=== PATIENT | male | born 2005 | race Hispanic/Latino ===

== ENCOUNTER 2024-09-04 22:00 | Emergency (ER) | payer BC ==
[~2024-09-04] VITALS: Ht 167.6 cm; Wt 72.6 kg
[2024-09-04] MEDS ORDERED: CIPOTIC OTIC (23:10)
--- NOTE | 2024-09-04 23:12 | ERN ---
General Chief Complaint: Foreignbody Ear Stated Complaint: C/O "SOMETHING" IN LEFT EAR Time Seen by MD: 22:05 Time Seen by Midlevel: 22:05 Source: patient History of Present Illness Initial Comments Patient is a 18-year-old male presenting to the ER with a foreign body sensation to his left ear that he 1st noticed1 hour ago. Patient believes there may be an insect in his ear. Denies any other concerns at this time Allergies: Coded Allergies: No Known Allergies (Unverified Allergy, Unknown, 09/04/24) Home Meds Active Scripts Ciprofloxacin HCl/Hc (Cipro Hc Otic Susp) 0.2 %-1 % Otsus, 3 DROP OTIC BID for 7 Days, #10 ML 0 Refills Prov:SUZY ALFONSO 09/04/24 Past Medical History Past Medical History: No Pertinent History Past Surgical History: None ROS Dictation CONSTITUTIONAL: Negative except for HPI HEAD/FACE: Negative except for HPI EENT: Negative except for HPI RESPIRATORY: Negative except for HPI GASTROINTESTINAL/ABDOMINAL: Negative except for HPI GENITOURINARY: Negative except for HPI MUSCULOSKELETAL: Negative except for HPI INTEGUMENTARY: Negative except for HPI NEUROLOGICAL/PSYCH: Negative except for HPI HEMATOLOGIC/LYMPHATIC: Negative except for HPI All Systems Negative, Except as noted above. 13 point review of systems assessed and all negative except for above. Physical Exam Physical Exam Dictation PHYSICAL EXAM: GENERAL: alert,, awake oriented x 3 HEENT: EOMI, Sclera non icteric, moist mucosa. insect to left ear NECK: Supple, no JVD, trachea midline LUNGS: Clear breath sounds bilaterally. No wheezes HEART: Regular rate and rhythm. Normal S1 and S2, without murmurs ABD: Abdomen soft, nontender. Bowel sounds present EXT: No clubbing or cyanosis, NEURO: Alert and oriented to person, follows commands MDM MDM: Patient is a 18-year-old male presenting to the ER with a foreign body sensation to his left ear that he 1st noticed1 hour ago. Patient believes there may be an insect in his ear. Denies any other concerns at this time on physical examination there is an live insect to the left external canal that was success fully removed with alligator forceps. Patient was given Cipro eardrops in the emergency department and will be discharged home with a prescription for Cipro otic suspension for outpatient management. Return precautions discussed Differential diagnosis: Foreign body left ear There are no social concerns with this patient. Prescription drug management Prescriptions will include: Medical management and examination interpretation discussions were had by me with other qualified healthcare professionals as indicated for the patient's care. ED Course Orders Procedure Category Date Status Time Ciprofloxacin Hcl/Hc PHA 09/04/24 Complete (Cipro Hc Otic Susp 22:30 Current Medications Medications (Trade) Dose Ordered Sig/Kellie Route PRN Reason Start Time Stop Time Status Last Admin Dose Admin Ciprofloxacin/ Hydrocortisone (Cipro Hc Otic Susp) 1 DROP ONCE ONCE OTIC 09/04/24 22:30 09/04/24 22:31 DC Vital Signs Date Time Temp Pulse Resp B/P (MAP) Pulse Ox O2 Delivery O2 Flow Rate FiO2 09/04/24 22:03 98.2 90 20 124/79 98 Room Air DX & DISP Disposition: Discharge Departure Impression: Primary Impression: Foreign body in left ear Condition: Stable Scripts Ciprofloxacin HCl/Hc (Cipro Hc Otic Susp) 0.2 %-1 % Otsus 3 DROP OTIC BID for 7 Days, #10 ML 0 Refills Prov: SUZY ALFONSO 09/04/24 Additional Instructions: An insect was removed from your left ear. I have provided you with a prescription for ciprofloxacin eardrops to prevent an infection. If you develop any new or worsening symptoms please report to the ER for further evaluation Time of Disposition: 23:07 I have reviewed the case, and I agree with, Diagnosis and Plan I performed the substantive portion of the visit. I have reviewed and personally made and approve the management plan that is documented in the note by myself or the JACINDA. I acknowledge for responsibility for the patient's management plan. SUZY ALFONSO Sep 04, 2024 23:12
[2024-09-04] MEDS: CIPROFLOXACIN HCL 0.2%/HYDROCORT 1% 10 ML OTIC SUSP OTIC ONE (23:25)
[2024-09-04 23:30] VITALS: BP 128/72; PULSE 75; RESP 18; TEMP 98.2
== END 2024-09-04 23:50 | disposition home or self-care (01) ==
LOC: EDH 22:00
DX: T16.2XXA Foreign body in left ear, initial encounter (principal); W44.9XXA Unspecified foreign body entering into or through a natural orifice, initial encounter
CPT/HCPCS: 69200; 99283